=== PATIENT | female | born 1940 | race Caucasian/White ===

== ENCOUNTER 2016-10-12 07:57 | Observation (INO) | payer MEDICARE, BC ==
[2016-10-12] VITALS (11 sets, daily range): BP systolic 101–144; BP diastolic 46–69; PULSE 67–102; RESP 18–20; TEMP 97.2–99.8; O2SAT 88–100
[~2016-10-12] VITALS: Ht 157.5 cm; Wt 94.3 kg
[2016-10-12] MEDS ORDERED: RESP: ALBUTEROL 2.5 MG/IPRATROPIUM 0.5 MG NEB (SCH) INH ONE (08:15)
[2016-10-12] MEDS ORDERED: SODIUM CHLORIDE 0.9% FLUSH 10 ML FLUSH IVF PRN (08:15)
[2016-10-12] MEDS ORDERED: NORV2.5T PO (08:17)
[2016-10-12] MEDS ORDERED: GABA600T PO (08:17)
[2016-10-12] MEDS ORDERED: LANTUS2P SQ (08:17)
[2016-10-12 08:35] LABS: AUTOMATED NEUTROPHIL # 12.9 TH/MM3 (1.8-7.7); BASOPHIL # 0.1 TH/MM3 (0-0.2); BASOPHIL % 0.4 % (0.0-2.0); EOSINOPHIL % 0.1 % (0.0-4.0); HEMATOCRIT 38.1 % (35.0-46.0); HEMO FLAGS DIFF FINAL; LYMPH % 5.6 % (9.0-44.0); LYMPHOCYTE # 0.9 TH/MM3 (1.0-4.8); MEAN CELL VOLUME 88.5 FL (80.0-100.0); MEAN CORPUSCULAR HEMOGLOBIN 29.3 PG (27.0-34.0); MEAN CORPUSCULAR HGB CONC 33.1 % (32.0-36.0); MONO % 9.8 % (0.0-8.0); NEUT % 84.1 % (16.0-70.0); PLATELET COUNT 209 TH/MM3 (150-450); RED CELL DISTRIBUTION WIDTH 14.8 % (11.6-17.2); WHITE BLOOD COUNT 15.3 TH/MM3 (4.0-11.0)
[2016-10-12 08:44] LABS: APTT (PATIENT) 24.6 SEC (24.3-30.1); PROTHROMBIN TIME - PATIENT 10.5 SEC (9.8-11.6)
--- NOTE | 2016-10-12 08:48 | RADRPT ---
EXAM DATE/TIME: 10/12/2016 08:29 [facility] COMPARISON: No previous studies available for comparison. INDICATIONS : Short of breath. MEDICAL HISTORY : Cardiovascular disease. SURGICAL HISTORY : Cardiac stents. ENCOUNTER: Initial ACUITY: 1 month PAIN SCORE: 2/10 LOCATION: General, upper body FINDINGS: Portable AP view of the chest demonstrates a normal-sized cardiac silhouette. No effusion, consolidat ion, or pneumothorax is visualized. The bones and soft tissues demonstrate no acute abnormality. Ther e is linear atelectasis at the lung bases. CONCLUSION: No acute cardiopulmonary abnormality is identified. Nahid Morfin MD on October 12, 2016 at 8:45 Board Certified Radiologist. This report was verified electronically.
[2016-10-12 08:49] LABS: ANION GAP 8 MEQ/L (5-15); AST (GOT) 14 U/L (15-37); BICARBONATE 28.3 MEQ/L (21.0-32.0); BLOOD UREA NITROGEN 21 MG/DL (7-18); CHLORIDE 102 MEQ/L (98-107); GLOMERULAR FILTRATION RATE 39 ML/MIN (>89); POTASSIUM 4.5 MEQ/L (3.5-5.1); SODIUM (NA) 138 MEQ/L (136-145)
[2016-10-12 08:50] LABS: ALT (GPT) 20 U/L (10-53)
[2016-10-12 08:54] LABS: ALKALINE PHOSPHATASE 96 U/L (45-117); TOTAL BILIRUBIN ADULT 1.1 MG/DL (0.2-1.0)
[2016-10-12 09:07] LABS: CREATINE KINASE 42 U/L (26-192)
[2016-10-12] MEDS ORDERED: IODIXANOL 320 MG/ML 10 ML VIAL (for Rad CT) IV ONE (10:00)
--- NOTE | 2016-10-12 10:08 | RADRPT ---
EXAM DATE/TIME: 10/12/2016 09:41 [facility] COMPARISON: No previous studies available for comparison. INDICATIONS : Shortness of breath x 2 weeks IV CONTRAST: 75 cc Visipaque (iodixanol) IV RADIATION DOSE: 23.11 CTDIvol (mGy) MEDICAL HISTORY : Hypertension. Pneumonia SURGICAL HISTORY : Cholecystectomy. ENCOUNTER: Initial ACUITY: 1 month PAIN SCALE: 8/10 LOCATION: Bilateral chest TECHNIQUE: Volumetric scanning of the chest was performed using a pulmonary embolism protocol MIP images were re constructed. Using automated exposure control and adjustment of the mA and/or kV according to patien t size, radiation dose was kept as low as reasonably achievable to obtain optimal diagnostic quality images. FINDINGS: No filling defects identified within the pulmonary arteries to suggest pulmonary embolic disease. There is mild to moderate emphysema especially in upper lobes. There is subsegmental airspace disease in right middle lobe probably atelectasis. Dependent atelectasis is also present. There is no pleural or pericardial effusion. Dense coronary calcifications noted. No acute findings in the upper abdomen. Small hiatal hernia. Previous cholecystectomy. CONCLUSION: 1. Negative for pulmonary embolism. 2. Subsegmental airspace disease in right middle lobe. Emphysema. 3. Dense coronary calcifications. Garrett Kaiser MD on October 12, 2016 at 10:02 Board Certified Radiologist. This report was verified electronically.
--- NOTE | 2016-10-12 10:17 | RADRPT ---
EXAM DATE/TIME: 10/12/2016 09:37 [facility] COMPARISON: No previous studies available for comparison. INDICATIONS : Sob dizziness for several weeks . RADIATION DOSE: 46.85 CTDIvol (mGy) MEDICAL HISTORY : Hypertension. Diabetes mellitus type 2. SURGICAL HISTORY : Cholecystectomy. ENCOUNTER: Initial ACUITY: 1 month PAIN SCALE: 6/10 LOCATION: Bilateral cranial TECHNIQUE: Multiple contiguous axial images were obtained of the head. Using automated exposure control and adj ustment of the mA and/or kV according to patient size, radiation dose was kept as low as reasonably a chievable to obtain optimal diagnostic quality images. FINDINGS: CEREBRUM: The ventricles are normal for age. No evidence of midline shift, mass lesion, hemorrhage or acute in farction. No extra-axial fluid collections are seen. POSTERIOR FOSSA: The cerebellum and brainstem are intact. The 4th ventricle is midline. The cerebellopontine angle i s unremarkable. EXTRACRANIAL: The visualized portion of the orbits is intact. SKULL: The calvaria is intact. No evidence of skull fracture. CONCLUSION: 1. No acute intracranial abnormalities. Mild white matter ischemic changes. Garrett Kaiser MD on October 12, 2016 at 10:13 Board Certified Radiologist. This report was verified electronically.
[2016-10-12] MEDS ORDERED: AZITHROMYCIN INJ 500 MG in SODIUM CHLOR 0.9% 250 ML INJ 250 ML IV ONE (10:30)
[2016-10-12] MEDS ORDERED: MAGNESIUM SULFATE 1 GM PREMIX 100 ML IV ONE (10:30)
[2016-10-12] MEDS ORDERED: methylPREDNISolone SOD SUCC 125 MG/2 ML VIAL IVP ONE (10:30)
[2016-10-12] MEDS: RESP: ALBUTEROL 2.5 MG/3 ML NEB (SCH) INH (10:40)
[2016-10-12] MEDS ORDERED: SODIUM CHLOR 0.9% 1000 ML INJ 1,000 ML IV SCH (11:29)
[2016-10-12] MEDS ORDERED: SODIUM CHLORIDE 0.9% FLUSH 10 ML FLUSH IV FLUSH PRN (11:30)
[2016-10-12] MEDS ORDERED: NALOXONE HCL 0.4 MG/ML AMP IV PRN (11:30)
[2016-10-12] MEDS ORDERED: ACETAMINOPHEN 325 MG TAB PO PRN (11:30)
[2016-10-12] MEDS ORDERED: PILL SPLITTER OTHER PRN (11:45)
[2016-10-12] MEDS ORDERED: DEXTROSE 50% IN WATER 50 ML VIAL(D50) IV PUSH PRN (11:45)
[2016-10-12] MEDS ORDERED: GLUCAGON 1 MG/ML VIAL OTHER PRN (11:45)
[2016-10-12] MEDS ORDERED: cefTRIAXone INJ 1,000 MG in SODIUM CHLORIDE 0.9% INJ 100 ML IV SCH (12:00)
--- NOTE | 2016-10-12 12:08 | HHI.HP ---
[facility] Ad[facility] Diagnosis COPD EXACERBATION WITH HYPOXEMIA Diagnoses: Chief Complaint: Weakness, shortness of breath Travel History International Travel<30 Days: No Contact w/Intl Traveler <30 Da: No Traveled to Known Affected Are: No History of Present Illness The patient is a 76-year-old female with a past medical history of CAD and diabetes who is presenting to the hospital with weakness and shortness of breath. The patient says that over the past few weeks she has felt more and more lethargic. She has also had increasing shortness of breath. She said that yesterday her level of fatigue was very high and she was pretty much in bed all day. She said she fell down twice yesterday because she would get dizzy. She fell one time while on the toilet and she fell another time while walking back from the bathroom. She did not lose any consciousness but stated that she felt dizzy prior to falling down. She says she has several canes at home she doesn't use them because it makes her look old. She says she has been coughing a lot. She has chest pain some times from coughing too much. She does endorse green sputum production. She says she has been told by one doctor she has COPD and by another that she doesn't. The patient says that she feels like her breathing got worse since coming to the beach. She has also recently traveled to [place] and [place]. She is originally from [place] and is supposed to go home in the next few days. The patient also endorses a throbbing headache. She has noticed low-grade fevers. The patient also mentions she has chronic left thigh pain which she says she has had for 3 years since she had a meniscal surgery. She said she had a cortisone injection a couple weeks ago. She says she has a hard time walking because of the pain. Review of Systems Except as stated in HPI: all other systems reviewed are Neg Past Family Social History Past Medical History CAD status post 2 stents Chronic kidney disease Diabetes Hypertension Question of COPD Past Surgical History Left meniscal surgery Cholecystectomy Allergies: Coded Allergies: Sulfa (Verified Allergy, Intermediate, RASH, 10/12/16) Active Ordered Medications Current Medications Medications (Trade) Dose Ordered Sig/Clarence Route Start Time Stop Time Status Last Admin (Norvasc) 2.5 mg DAILY PO 10/12/16 11:30 (Neurontin) 600 mg TID PO 10/12/16 13:00 Insulin Glargine 10 units 10 units HS SQ 10/12/16 21:00 (NS 1000 ml Inj) 1,000 ml @ 75 mls/hr [id number] IV 10/12/16 11:29 10/13/16 00:48 (NS Flush) 2 ml UNSCH PRN IV FLUSH 10/12/16 11:30 (NS Flush) 2 ml BID IV FLUSH 10/12/16 21:00 (Tylenol) 650 mg Q4H PRN PO 10/12/16 11:30 (Heparin Inj) 5,000 units Q8H SQ 10/12/16 12:00 (Tylenol) 650 mg Q6H PRN PO 10/12/16 11:30 (Roxicodone) 5 mg Q4H PRN PO 10/12/16 11:30 (Narcan Inj) 0.4 mg UNSCH PRN IV 10/12/16 11:30 (Xena-Colace) 1 tab BID PO 10/12/16 21:00 (Pill Splitter) 1 ea UNSCH PRN OTHER 10/12/16 11:45 (D50w (Vial) Inj) 25 ml UNSCH PRN IV PUSH 10/12/16 11:45 Glucagon 1 mg 1 mg UNSCH PRN OTHER 10/12/16 11:45 (Rocephin Inj/NS Inj) 100 ml @ 200 mls/hr Q24H IV 10/12/16 12:00 Family History CAD Esophageal cancer Gallbladder cancer Social History The patient used to smoke but quit years ago. She does not drink. She lives in [place]. Physical Exam Vital Signs Vital Signs Date Time Temp Pulse Resp B/P Pulse Ox O2 Delivery O2 Flow Rate FiO2 10/12/16 11:09 99 20 141/69 95 Nasal Cannula 3 10/12/16 09:15 98.4 97 20 144/64 94 Nasal Cannula 3 10/12/16 08:27 100 21 10/12/16 08:12 97 Room Air 10/12/16 08:12 98 Room Air 10/12/16 08:03 99.8 102 18 142/63 99 Physical Exam GENERAL: This is a well-nourished, well-developed patient, in no apparent distress. SKIN: No rashes, ecchymoses or lesions. Cool and dry. HEAD: Atraumatic. Normocephalic. No temporal or scalp tenderness. EYES: Pupils equal round and reactive. Extraocular motions intact. No scleral icterus. No injection or drainage. ENT: Nose without bleeding, purulent drainage or septal hematoma. Throat without erythema, tonsillar hypertrophy or exudate. Uvula midline. Airway patent. NECK: Trachea midline. No JVD or lymphadenopathy. Supple, nontender, no meningeal signs. CARDIOVASCULAR: Tachycardic without murmurs, gallops, or rubs. RESPIRATORY: Slight crackles appreciated. GASTROINTESTINAL: Abdomen soft, non-tender, nondistended. No hepato-splenomegaly , or palpable masses. No guarding. MUSCULOSKELETAL: Extremities without clubbing, cyanosis, or pitting edema. Lower extremities tender to palpation. NEUROLOGICAL: Awake and alert. Cranial nerves II through XII intact. Weakness appreciated in the lower extremities. Normal speech. PSYCH: Mood and affect appropriate. Laboratory Laboratory Tests Test 10/12/16 08:15 White Blood Count 15.3 Red Blood Count 4.30 Hemoglobin 12.6 Hematocrit 38.1 Mean Corpuscular Volume 88.5 Mean Corpuscular Hemoglobin 29.3 Mean Corpuscular Hemoglobin 33.1 Concent Red Cell Distribution Width 14.8 Platelet Count 209 Mean Platelet Volume 9.7 Neutrophils (%) (Auto) 84.1 Lymphocytes (%) (Auto) 5.6 Monocytes (%) (Auto) 9.8 Eosinophils (%) (Auto) 0.1 Basophils (%) (Auto) 0.4 Neutrophils # (Auto) 12.9 Lymphocytes # (Auto) 0.9 Monocytes # (Auto) 1.5 Eosinophils # (Auto) 0.0 Basophils # (Auto) 0.1 CBC Comment DIFF FINAL Differential Comment Prothrombin Time 10.5 Prothromb Time International 1.0 Ratio Activated Partial 24.6 Thromboplast Time Sodium Level 138 Potassium Level 4.5 Chloride Level 102 Carbon Dioxide Level 28.3 Anion Gap 8 Blood Urea Nitrogen 21 Creatinine 1.32 Estimat Glomerular Filtration 39 Rate Random Glucose 211 Calcium Level 8.7 Total Bilirubin 1.1 Aspartate Amino Transf 14 (AST/SGOT) Alanine Aminotransferase 20 (ALT/SGPT) Alkaline Phosphatase 96 Total Creatine Kinase 42 Troponin I LESS THAN 0.02 B-Type Natriuretic Peptide 50 Total Protein 6.7 Albumin 2.8 Date/Time Procedure Status Source Growth 10/12/16 08:00 Influenza Types A,B Antigen (LIAN) - Final Complete Nasal Washing NEGATIVE FOR FLU A AND B ANTIGEN.... Result Diagram: 10/12/1681410/12/16814 Imaging Last Impressions Head CT 10/12/16822 Signed Impressions: Service Date/Time: , October 12, 2016 09:37 - CONCLUSION: 1. No acute intracranial abnormalities. Mild white matter ischemic changes. Garrett Kaiser MD Chest X-Ray 10/12/16808 Signed Impressions: Service Date/Time: , October 12, 2016 08:29 - CONCLUSION: No acute cardiopulmonary abnormality is identified. Nahid Morfin MD CT Angiography 10/12/16808 Signed Impressions: Service Date/Time: , October 12, 2016 09:41 - CONCLUSION: 1. Negative for pulmonary embolism. 2. Subsegmental airspace disease in right middle lobe. Emphysema. 3. Dense coronary calcifications. Garrett Kaiser MD Assessment and Plan Assessment and Plan Acute respiratory failure/ PNA/ COPD The patient has shortness of breath and a productive cough. She has a significant smoking history and has been told she has COPD in the past. CT scan did demonstrate airspace disease in the right middle lobe. She has leukocytosis and has been having low-grade fevers. Influenza test was negative. - Oxygen and nebs as needed. Add standing nebs. - continue IV ceftriaxone and azithromycin. - Follow blood and sputum cultures. - IV fluids. - Incentive spirometry. Weakness Likely exacerbated by pneumonia. - Check a TSH and vitamin B12 level. - Treatment as above. - PT/ OT. Chronic kidney disease Diagnosed earlier this year. Likely s/t diabetes. Creatinine is stable. - Follow BMP and avoid nephrotoxic agents. - IV fluids. CAD The patient has pleuritic chest pain secondary to coughing from pneumonia. - Continue cardiac regimen. - Monitor on telemetry. - trend troponins. DM On Lantus as an outpt. - Levemir HS. - insulin sliding scale. HTN Blood pressure is relatively controlled. - resume home medications. - Vasotec as needed. PPx: Heparin Code Status Full Discussed Condition With Patient, patient's family, Geremias Manriquez DO Oct 12, 2016 12:08
[2016-10-12] MEDS ORDERED: RESP: ALBUTEROL 2.5 MG/IPRATROPIUM 0.5 MG NEB (PRN) NEB (12:15)
[2016-10-12] MEDS ORDERED: ENALAPRILAT 1.25 MG/ML VIAL IV PUSH PRN (12:15)
[2016-10-12] MEDS: amLODIPine BESYLATE 5 MG TAB PO SCH (12:15)
[2016-10-12] MEDS: HEPARIN SODIUM - SQ 10,000 UNITS/ML VIAL SQ SCH ×2 (12:16→20:00)
[2016-10-12] MEDS: RESP: ALBUTEROL 2.5 MG/IPRATROPIUM 0.5 MG NEB (SCH) NEB (12:41)
[2016-10-12] MEDS: METOPROLOL SUCCINATE 50 MG EXTENDED RELEASE TAB PO SCH (13:16)
[2016-10-12] MEDS: GABAPENTIN 300 MG CAP PO SCH ×2 (13:16→18:10)
--- NOTE | 2016-10-12 13:43 | EKG ---
Date Performed: 10/12/2016 Time Performed: 08:10:22 PTAGE: 76 years EKG: Sinus rhythm INFERIOR MYOCARDIAL INFARCTION ABNORMAL ECG NO PREVIOUS TRACING DOCTOR: Prerna Ghotra Interpretating Date/Time 10/12/2016 13:42:05
[2016-10-12] MEDS: ACETAMINOPHEN 325 MG TAB PO PRN ×2 (15:20→19:33)
[2016-10-12] MEDS ORDERED: INSULIN ASPART SUPPLEMENTAL SCALE SQ SCH (16:00)
[2016-10-12] MEDS ORDERED: INSULIN ASPART 1,000 UNITS/10 ML VIAL SQ ONE (18:45)
[2016-10-12 19:57] LABS: ANION GAP 15 MEQ/L (5-15); BLOOD UREA NITROGEN 28 MG/DL (7-18); CHLORIDE 98 MEQ/L (98-107); GLOMERULAR FILTRATION RATE 28 ML/MIN (>89); POTASSIUM 4.4 MEQ/L (3.5-5.1); SODIUM (NA) 132 MEQ/L (136-145)
[2016-10-12] MEDS: DOCUSATE SODIUM 50 MG/SENNA 8.6 MG TAB PO SCH (20:52)
[2016-10-12] MEDS ORDERED: INSULIN GLARGINE 1,000 UNITS/10 ML VIAL SQ SCH (21:00)
[2016-10-12] MEDS: RANOLAZINE 500 MG EXTENDED RELEASE TAB PO SCH (21:00)
[2016-10-12] MEDS: SODIUM CHLORIDE 0.9% FLUSH 10 ML FLUSH IV FLUSH SCH (21:00)
[2016-10-12] MEDS ORDERED: INSULIN DETEMIR 100 UNITS/ML VIAL SQ SCH (21:00)
[2016-10-12] MEDS: INSULIN ASPART SUPPLEMENTAL SCALE SQ SCH (21:02)
[2016-10-12] MEDS ORDERED: INSULIN HUMAN REGULAR 1,000 UNITS/10 ML VIAL IV PUSH ONE (22:45)
[2016-10-13 04:15] VITALS: BP 109/56; PULSE 67; RESP 18; TEMP 97.9; O2SAT 93
[2016-10-13] MEDS: HEPARIN SODIUM - SQ 10,000 UNITS/ML VIAL SQ SCH (06:15)
[2016-10-13] MEDS: INSULIN ASPART SUPPLEMENTAL SCALE SQ SCH (06:16)
[2016-10-13] MEDS ORDERED: ISOSORBIDE MONONITRATE 30 MG TAB PO SCH (07:00)
[2016-10-13 08:00] VITALS: BP 108/58; PULSE 63; RESP 18; TEMP 97.5; O2SAT 91
[2016-10-13 08:16] LABS: AUTOMATED NEUTROPHIL # 17.9 TH/MM3 (1.8-7.7); BASOPHIL % 0.1 % (0.0-2.0); HEMATOCRIT 35.3 % (35.0-46.0); HEMO FLAGS DIFF FINAL; LYMPHOCYTE # 0.8 TH/MM3 (1.0-4.8); MEAN CELL VOLUME 87.3 FL (80.0-100.0); MEAN CORPUSCULAR HEMOGLOBIN 29.4 PG (27.0-34.0); MEAN CORPUSCULAR HGB CONC 33.7 % (32.0-36.0); MONO % 4.4 % (0.0-8.0); NEUT % 91.5 % (16.0-70.0); PLATELET COUNT 204 TH/MM3 (150-450); RED BLOOD COUNT 4.05 MIL/MM3 (4.00-5.30); RED CELL DISTRIBUTION WIDTH 14.4 % (11.6-17.2); WHITE BLOOD COUNT 19.6 TH/MM3 (4.0-11.0)
[2016-10-13] MEDS: GABAPENTIN 300 MG CAP PO SCH (08:28)
[2016-10-13] MEDS: SODIUM CHLORIDE 0.9% FLUSH 10 ML FLUSH IV FLUSH SCH (08:28)
[2016-10-13] MEDS: DOCUSATE SODIUM 50 MG/SENNA 8.6 MG TAB PO SCH (08:29)
[2016-10-13] MEDS: RANOLAZINE 500 MG EXTENDED RELEASE TAB PO SCH (08:29)
[2016-10-13] MEDS: ACETAMINOPHEN 325 MG TAB PO PRN (08:30)
[2016-10-13 08:43] LABS: ALT (GPT) 18 U/L (10-53); ANION GAP 8 MEQ/L (5-15); AST (GOT) 12 U/L (15-37); BICARBONATE 25.8 MEQ/L (21.0-32.0); BLOOD UREA NITROGEN 30 MG/DL (7-18); CHLORIDE 104 MEQ/L (98-107); GLOMERULAR FILTRATION RATE 47 ML/MIN (>89); POTASSIUM 4.1 MEQ/L (3.5-5.1); SODIUM (NA) 138 MEQ/L (136-145)
[2016-10-13 08:46] LABS: ALKALINE PHOSPHATASE 99 U/L (45-117); TOTAL BILIRUBIN ADULT 0.4 MG/DL (0.2-1.0)
[2016-10-13] MEDS: amLODIPine BESYLATE 5 MG TAB PO SCH (08:55)
[2016-10-13] MEDS: METOPROLOL SUCCINATE 50 MG EXTENDED RELEASE TAB PO SCH (08:56)
[2016-10-13] MEDS ORDERED: LISINOPRIL 10 MG TAB PO SCH (09:00)
[2016-10-13] MEDS ORDERED: ASPIRIN EC 81 MG TABEC PO SCH (09:00)
[2016-10-13] MEDS: RESP: ALBUTEROL 2.5 MG/IPRATROPIUM 0.5 MG NEB (SCH) NEB (09:43)
[2016-10-13 09:45] VITALS: O2SAT 95
--- NOTE | 2016-10-13 11:32 | HHI.DS ---
Discharge Summary Admission Date Oct 12, 2016 at 10:37 Discharge Date: Oct 13, 2016 Admitting Diagnosis COPD EXACERBATION WITH HYPOXEMIA (1) COPD with exacerbation ICD Code: J44.1 Diagnosis: Principal (2) Pneumonia ICD Code: J18.9 Diagnosis: Principal (3) Hypertension ICD Code: I10 Diagnosis: Secondary (4) Uncontrolled diabetes mellitus ICD Code: E11.65 Diagnosis: Secondary (5) Need for assistance due to unsteady gait ICD Code: R26.89 Diagnosis: Secondary Procedures none Brief History - From Admission The patient is a 76-year-old female with a past medical history of CAD and diabetes who is presenting to the hospital with weakness and shortness of breath. The patient says that over the past few weeks she has felt more and more lethargic. She has also had increasing shortness of breath. She said that yesterday her level of fatigue was very high and she was pretty much in bed all day. She said she fell down twice yesterday because she would get dizzy. She fell one time while on the toilet and she fell another time while walking back from the bathroom. She did not lose any consciousness but stated that she felt dizzy prior to falling down. She says she has several canes at home she doesn't use them because it makes her look old. She says she has been coughing a lot. She has chest pain some times from coughing too much. She does endorse green sputum production. She says she has been told by one doctor she has COPD and by another that she doesn't. The patient says that she feels like her breathing got worse since coming to the beach. She has also recently traveled to [place] and [place]. She is originally from [place] and is supposed to go home in the next few days. The patient also endorses a throbbing headache. She has noticed low-grade fevers. The patient also mentions she has chronic left thigh pain which she says she has had for 3 years since she had a meniscal surgery. She said she had a cortisone injection a couple weeks ago. She says she has a hard time walking because of the pain. CBC/BMP: 10/13/16 0654 10/13/16 0654 Significant Findings Laboratory Tests Test 10/12/16 10/12/16 10/12/16 10/13/16 08:15 14:21 18:42 06:54 White Blood Count 15.3 TH/MM3 19.6 TH/MM3 (4.0-11.0) (4.0-11.0) Neutrophils (%) (Auto) 84.1 % 91.5 % (16.0-70.0) (16.0-70.0) Lymphocytes (%) (Auto) 5.6 % 4.0 % (9.0-44.0) (9.0-44.0) Monocytes (%) (Auto) 9.8 % (0.0-8.0) Neutrophils # (Auto) 12.9 TH/MM3 17.9 TH/MM3 (1.8-7.7) (1.8-7.7) Lymphocytes # (Auto) 0.9 TH/MM3 0.8 TH/MM3 (1.0-4.8) (1.0-4.8) Monocytes # (Auto) 1.5 TH/MM3 (0-0.9) Blood Urea Nitrogen 21 MG/DL (7-18) 28 MG/DL (7-18) 30 MG/DL (7-18) Creatinine 1.32 MG/DL 1.79 MG/DL 1.12 MG/DL (0.50-1.00) (0.50-1.00) (0.50-1.00) Estimat Glomerular Filtration 39 ML/MIN (>89) 28 ML/MIN (>89) 47 ML/MIN (>89) Rate Random Glucose 211 MG/DL 583 MG/DL 293 MG/DL (74-106) (74-106) (74-106) Total Bilirubin 1.1 MG/DL (0.2-1.0) Aspartate Amino Transf 14 U/L (15-37) 12 U/L (15-37) (AST/SGOT) Troponin I LESS THAN 0.02 LESS THAN 0.02 LESS THAN 0.02 NG/ML NG/ML NG/ML (0.02-0.05) (0.02-0.05) (0.02-0.05) Albumin 2.8 GM/DL 2.4 GM/DL (3.4-5.0) (3.4-5.0) Vitamin B12 Level GREATER THAN 2000 PG/ML (193-986) Sodium Level 132 MEQ/L (136-145) Carbon Dioxide Level 19.0 MEQ/L (21.0-32.0) Imaging Last Impressions Head CT 10/12/16822 Signed Impressions: Service Date/Time: , October 12, 2016 09:37 - CONCLUSION: 1. No acute intracranial abnormalities. Mild white matter ischemic changes. Garrett Kaiser MD Chest X-Ray 10/12/16808 Signed Impressions: Service Date/Time: September 08:29 - CONCLUSION: No acute cardiopulmonary abnormality is identified. Nahid Morfin MD CT Angiography 10/12/16808 Signed Impressions: Service Date/Time: , October 12, 2016 09:41 - CONCLUSION: 1. Negative for pulmonary embolism. 2. Subsegmental airspace disease in right middle lobe. Emphysema. 3. Dense coronary calcifications. Garrett Kaiser MD Pt update on day of discharge Feels much better satting well on room air. Patient did walk with the nurse and was sattign 92 % with walking. Patient says she feels back to her baselin. Says she deosn't have any chest pain, sob, wheezing. No n/v/d/c. BS better controlled. No fever or chills. Feels comfortable to go home. Says she has an appointment with her pulm on Sunday Daughter at bedside. Hospital Course Acute respiratory failure/ PNA/ COPD The patient has shortness of breath and a productive cough. She has a significant smoking history and has been told she has COPD in the past. CT scan did demonstrate airspace disease in the right middle lobe. She has leukocytosis and has been having low-grade fevers. Influenza test was negative. - Oxygen and nebs as needed. Add standing nebs. - continue IV ceftriaxone and azithromycin. - Follow blood and sputum cultures. - IV fluids. - Incentive spirometry. - Patient was walking with the nurse satting well on room air 92%. Patient is not wheezing and less cough afebrile overnight Leukocytosis is likely eecerbated 2/2 steroids. Patient feels at baseline. Improved significantly Has an appointment with her pulm as OP on Weakness Likely exacerbated by pneumonia. - Check a TSH and vitamin B12 level. - Treatment as above. - PT/ OT. Needs cane at [place] ordered Chronic kidney disease Diagnosed earlier this year. Likely s/t diabetes. Creatinine is stable. Improved significantly - Follow BMP and avoid nephrotoxic agents. - IV fluids. CAD The patient has pleuritic chest pain secondary to coughing from pneumonia. - Continue cardiac regimen. - Monitor on telemetry. - trend troponins negative x3 . Patient is asymptomatic. Continue her home meds. DM2 uncontrolled par patient last recent a1c was 8. On Lantus as an outpt. - Levemir HS. - insulin sliding scale. HTN Blood pressure is relatively controlled. - resume home medications. - Vasotec as needed. PPx: Heparin Code Status Full Discussed Condition With Patient, patient's family daughter at bedside Patient improved significantly faster than expected. Patient is discharge home in stable condition . She already has appointments with her pulm, cardiology and PCP as OP. Pt Condition on Discharge: Stable Discharge Disposition: Discharge Home Discharge Time: > 30 minutes Discharge Instructions DIET: Follow Instructions for: Heart Healthy Diet, Diabetic Diet Activities you can perform: Regular-No Restrictions Follow up Referrals: PCP Follow-up - 3-5 Days New Medications: Albuterol 18 GM Inh (Ventolin Hfa 18 GM Inh) 90 Mcg/Act Aer 2 PUFF INH Q4-6H PRN SHORTNESS OF BREATH #1 Ref 0 INHALER Budesonide Powder Inh (Pulmicort Flexhaler) 180 Mcg/Act Inhp 180 MCG INH Q12HR Asthma Management #1 Ref 0 INHALER Cefuroxime (Cefuroxime) 500 Mg Tab 500 MG PO BID Infection #14 Ref 0 TAB Ipratropium HFA 12.9 GM Inh (Atrovent HFA 12.9 GM Inh) 17 Mcg/Act Aer 2 PUFF INH QID Shortness of Breath #1 Ref 0 INHALER Prednisone (Prednisone) 10 Mg Tab 20 MG PO DAILY copd #5 Ref 0 TAB Quad Cane/Large Low Base (Quad Cane/Large Low Base) 1 Mis Mis 1 EA .ROUTE DIRECTED #[address] (Adult Aspirin EC Low Strength) 81 Mg Tabec 81 MG PO DAILY Blood Clot Prevention #30 TAB Isosorbide Mononitrate ER (Isosorbide Mononitrate ER) 30 Mg Nidia 30 MG PO DAILY@07 Blood Pressure Management #30 TAB Lisinopril (Lisinopril) 10 Mg Tab 10 MG PO DAILY Blood Pressure Management #30 TAB Metoprolol Succinate ER 24 HR (Metoprolol Succinate ER 24 HR) 50 Mg Tab 50 MG PO DAILY Blood Pressure Management #30 TAB Ranolazine ER 12 HR (Ranexa ER 12 HR) 500 Mg Tab 500 MG PO Q12HR Blood Pressure Management #30 TAB Changed Medications: Insulin Glargine Inj (Lantus Inj) 1,000 Unit/10 Ml Vial 25 UNITS SQ HS Blood Sugar Management #30 Ref 0 VIAL (Changed from: 20 UNITS) Continued Medications: Amlodipine (Norvasc) 2.5 Mg Tab 2.5 MG PO DAILY Blood Pressure Management #30 Ref 0 TAB Gabapentin (Gabapentin) 600 Mg Tab 600 MG PO TID #90 Ref 0 TAB Kori Pettit MD Oct 13, 2016 11:32
[2016-10-13] MEDS ORDERED: ISOS30TA3 PO (11:38)
[2016-10-13] MEDS ORDERED: PULM180I INH (11:38)
[2016-10-13] MEDS ORDERED: METO50TA11 PO (11:38)
[2016-10-13] MEDS ORDERED: IPRA17I INH (11:38)
[2016-10-13] MEDS ORDERED: LANTUS2P SQ (11:38)
[2016-10-13] MEDS ORDERED: PRED10 PO (11:38)
[2016-10-13] MEDS ORDERED: LISI10TA3 PO (11:38)
[2016-10-13] MEDS ORDERED: VENTAER INH (11:38)
[2016-10-13] MEDS ORDERED: RANO500 PO (11:38)
[2016-10-13] MEDS ORDERED: CEFU1TAB20 PO (11:41)
[2016-10-13] MEDS ORDERED: QUAD CANE/LARGE1 MI5 (11:45)
[2016-10-13] MEDS ORDERED: ASPI-99 PO (11:47)
[2016-10-13 12:00] VITALS: BP 120/59; PULSE 73; RESP 18; TEMP 97.5; O2SAT 94
--- NOTE | 2016-10-28 03:24 | PD ---
HPI Chief Complaint: Respiratory Distress Time Seen by Provider: 08:09 Travel History International Travel<30 days: No Contact w/Intl Traveler<30days: No Traveled to known affect area: No History of Present Illness HPI PATIENT C/O GEN WEAKNESS ALONG WITH SOB, WHEEZING, AND A DRY COUGH, VISITING FROM [place]...SYMPTOMS ONGOING AND NOT IMPROVING OVER PAST 3 DAYS.....DENIED CP /FEVER/N/V/D/ AT THIS POINT. STATES ALLERGIC TO SULFA, AND PMH SIG FOR CAD WITH 2 STENTS, CKD , DM, HTN AND COPD PFSH Past Medical History Arthritis: Yes Cancer: No Cardiovascular Problems: Yes High Cholesterol: Yes Chest Pain: No COPD: Yes (NOT SURE) Diabetes: Yes Patient Takes Glucophage: No Diminished Hearing: No Endocrine: Yes Genitourinary: No Hypertension: Yes Immune Disorder: No Neurologic: No Psychiatric: No Respiratory: Yes Myocardial Infarction: Yes Pneumonia: Yes Tetanus Vaccination: Unknown Influenza Vaccination: Yes ?: Not Past Surgical History Abdominal Surgery: Yes (GALL BLADDER REMOVAL) Cardiac Surgery: Yes (CARDIAC STENTS) Cholecystectomy: Yes Coronary Stent: Yes Social History Alcohol Use: No Tobacco Use: No Substance Use: No Allergies-Medications (Allergen,Severity, Reaction): Coded Allergies: Sulfa (Verified Allergy, Intermediate, RASH, 10/12/16) Reported Meds & Prescriptions Reported Meds & Active Scripts Active Reported Gabapentin 600 Mg Tab 600 Mg PO TID Norvasc (Amlodipine Besylate) 2.5 Mg Tab 2.5 Mg PO DAILY Review of Systems Except as stated in HPI: all other systems reviewed are Neg Respiratory: Positive: Cough, Shortness of Breath, Wheezing Physical Exam Narrative GENERAL: SKIN: Warm and dry. HEAD: Atraumatic. Normocephalic. EYES: Pupils equal and round. No scleral icterus. No injection or drainage. ENT: No nasal bleeding or discharge. Mucous membranes pink and moist. NECK: Trachea midline. No JVD. CARDIOVASCULAR: Regular rate and rhythm. RESPIRATORY: NO RETRACTIONS, HYPOXEMIA NOTED ON PULSE OX, TACHYPNEIC, WHEEZING GENERALLY, DECREASED TV, RT MID LUNG CRACKLES NOTED GASTROINTESTINAL: Abdomen soft, non-tender, nondistended. Hepatic and splenic margins not palpable. MUSCULOSKELETAL: Extremities without clubbing, cyanosis, or edema. No obvious deformities. NEUROLOGICAL: Awake and alert. No obvious cranial nerve deficits. Motor grossly within normal limits. Five out of 5 muscle strength in the arms and legs. Normal speech. PSYCHIATRIC: Appropriate mood and affect; insight and judgment normal. Data Data Orders Complete Blood Count With Diff (10/12/16 08:09) Comprehensive Metabolic Panel (10/12/16 08:09) B-Type Natriuretic Peptide (10/12/16 08:09) Act Partial Throm Time (Ptt) (10/12/16 08:09) Prothrombin Time / Inr (Pt) (10/12/16 08:09) Ckmb (Isoenzyme) Profile (10/12/16 08:09) Troponin I (10/12/16 08:09) Influenzae A/B Antigen (10/12/16 08:09) Iv Access Insert/Monitor (10/12/16 08:09) Electrocardiogram (10/12/16 08:09) Ecg Monitoring (10/12/16 08:09) Oximetry (10/12/16 08:09) Oxygen Administration (10/12/16 08:09) Chest, Single Ap (10/12/16 08:09) Ct Pulmonary Angiogram (10/12/16 08:09) Sodium Chloride 0.9% Flush (Ns Flush) (10/12/16 08:15) Albuterol-Ipratropium Neb (Duoneb Neb) (10/12/16 08:15) Ct Brain W/O Iv Contrast(Rout) (10/12/16 08:23) Iodixanol 320 Inj (Rad Ct) (Visipaque 32 (10/12/16 10:00) Methylprednisolone So Succ Inj (Solumedr (10/12/16 10:30) Albuterol Neb (Albuterol Neb) (10/12/16 10:30) Magnesium Sulfate 1 Gm Premix (Magnesium (10/12/16 10:30) Azithromycin Inj (Zithromax Inj) (10/12/16 10:30) Admit Order (Ed Use Only) (10/12/16 10:35) MDM Medical Decision Making Medical Screen Exam Complete: Yes Emergency Medical Condition: Yes Medical Record Reviewed: Yes Differential Diagnosis PE V PTX V PNA V COPD EXAC V ATYPICAL PA Narrative Course PATIENT DURING EVALUATION NOTED TO BE IN RESP DISTRESS AND HYPOXEMIC, PT WAS TREATED AGGRESSIVELY WITH IV ABX, STEROIDS, HOURLONG NEBS , CT NEG FOR PE, FLU NEG AND ADMITTED FOR FURTHER CARE Diagnosis Primary Impression: COPD EXACERBATION WITH HYPOXEMIA Additional Impression: RML PNEUMONIA Admitting Information Admitting Physician Requests: Observation Patient Instructions: Cefuroxime (By mouth), Metoprolol (By mouth), Lisinopril (By mouth), Albuterol (By breathing), Ipratropium (By breathing), Prednisone ( By mouth), Aspirin (By mouth), Isosorbide Mononitrate (By mouth), Budesonide ( By breathing), Ranolazine (By mouth), Insulin Glargine (By injection), COPD ( Chronic Obstructive Pulmonary Disease) (DC), Chronic Hypertension (DC) Scripts Aspirin DR (Adult Aspirin EC Low Strength)81 Mg Tabec81 Mg PO DAILY #30 TAB Prov:Kori Pettit MD 10/13/16 Quad Cane/Large Low Base 1 Mis Mis #1 Ea .route As Directed Prov:Kori Pettit MD 10/13/16 Cefuroxime 500 Mg Ppi283 Mg PO BID #14 TAB Ref 0 Prov:Kori Pettit MD 10/13/16 Ipratropium HFA 12.9 GM Inh (Atrovent HFA 12.9 GM Inh)17 Mcg/Act Aer2 Puff INH QID #1 INHALER Ref 0 Prov:Kori Pettit MD 10/13/16 Albuterol 18 GM Inh (Ventolin Hfa 18 GM Inh)90 Mcg/Act Aer2 Puff INH Q4-6H PRN ( SHORTNESS OF BREATH) #1 INHALER Ref 0 Prov:Kori Pettit MD 10/13/16 Budesonide Powder Inh (Pulmicort Flexhaler)180 Mcg/Act [id number] Mcg INH Q12HR # 1 INHALER Ref 0 Prov:Kori Pettit MD 10/13/16 Prednisone 10 Mg Tab20 Mg PO DAILY #5 TAB Ref 0 Prov:Kori Pettit MD 10/13/16 Ranolazine ER 12 HR (Ranexa ER 12 HR)500 Mg Key856 Mg PO Q12HR #30 TAB Prov:Kori Pettit MD 10/13/16 Isosorbide Mononitrate ER 30 Mg Taber30 Mg PO DAILY@07 #30 TAB Prov:Kori Pettit MD 10/13/16 Metoprolol Succinate ER 24 HR 50 Mg Tab50 Mg PO DAILY #30 TAB Prov:Kori Pettit MD 10/13/16 Lisinopril 10 Mg Tab10 Mg PO DAILY #30 TAB Prov:Kori Pettit MD 10/13/16 Insulin Glargine Inj (Lantus Inj)1,000 Unit/10 Ml Vial25 Units SQ HS #30 VIAL Ref 0 Prov:Kori Pettit MD 10/13/16 Patel Brown MD Oct 28, 2016 03:24
== END 2016-10-13 12:49 | disposition home or self-care (01) ==
LOC: NEPC 07:57 → NEDA 10:37 → N04A 13:55
PROVIDERS: ADMIT Hospitalist; ATTEND Hospitalist
DX: J44.1 Chronic obstructive pulmonary disease with (acute) exacerbation (principal); J44.0 Chronic obstructive pulmonary disease with (acute) lower respiratory infection; J18.9 Pneumonia, unspecified organism; J96.01 Acute respiratory failure with hypoxia; E11.65 Type 2 diabetes mellitus with hyperglycemia; E11.22 Type 2 diabetes mellitus with diabetic chronic kidney disease; I12.9 Hypertensive chronic kidney disease with stage 1 through stage 4 chronic kidney disease, or unspecified chronic kidney disease; I25.10 Atherosclerotic heart disease of native coronary artery without angina pectoris; N18.9 Chronic kidney disease, unspecified; T38.0X5A Adverse effect of glucocorticoids and synthetic analogues, initial encounter; R42 Dizziness and giddiness; M79.652 Pain in left thigh; R26.89 Other abnormalities of gait and mobility; Z87.891 Personal history of nicotine dependence; R51 Headache; Z79.4 Long term (current) use of insulin; Z95.5 Presence of coronary angioplasty implant and graft; W18.11XA Fall from or off toilet without subsequent striking against object, initial encounter; Y92.012 Bathroom of single-family (private) house as the place of occurrence of the external cause
CPT/HCPCS: 70450; 71010; 71275; 80053; 82550; 82607; 82947; 82948; 83880; 84443; 84484; 85025; 85610; 85730; 87040; 87804; 93005; 94150; 94640; 94664; 97162; 99285; G0378; G8987; G8988; J0456; J0696; J1644; J1815; J2930; J3475; J7030; J7050; J7613; Q9967; 80048